=== PATIENT | female | born 1980 | race Caucasian/White ===

== ENCOUNTER 2019-01-24 08:22 | Emergency (ER) | payer OTHER ==
[2019-01-24 08:38] VITALS: BP 133/86
[2019-01-24] MEDS ORDERED: HYDROcod/ACETAM 5/325 MG TABLET PO STA (08:45)
[2019-01-24] MEDS ORDERED: CYCLOBENZAPRINE 10 MG TABLET PO STA (08:45)
--- NOTE | 2019-01-24 08:49 | ED Physician Documentation ---
History of Present Illness - Stated complaint Stated Complaint: LT SIDE NECK AND SHOULDER PX - Chief complaint Chief Complaint: Trauma Hd/Nk - History obtained from History obtained from: Patient - Additonal information Additional information: Patient is a 38-year-old previously healthy, right-handed female presenting with left neck pain that began several days ago after attending [facility]. Patient denies any particular inciting incident, trauma, or fall. She describes significant muscle spasm to the left neck towards her left scapula and left shoulder. Patient denies any change in strength or range of motion to left arm, but does report numbness and tingling occasionally to this arm. No overlying skin changes or other complaints. Patient has been taking naproxen and ibuprofen without much relief, as well as using massage, ice, heat, and stretching. No other improving or worsening factors noted. Review of Systems Skin: denies: Rash, Lesions, Abrasion (s) Musculoskeletal: reports: Neck pain PD PAST MEDICAL HISTORY - Past Medical History Past Medical History: Yes Psych: Anxiety - Past Surgical History Past Surgical History: Yes /[employer]: section - Present Medications Home Medications: Ambulatory Orders Medication Instructions Recorded Confirmed Cyclobenzaprine [Flexeril] 10 mg PO TID PRN #20 tablet 01/24/19 DULoxetine [Cymbalta] 30 mg DAILY 01/24/19 01/24/19 Hydrocodone/Acetaminophen 1 - 2 each PO Q6H PRN #14 tablet 01/24/19 [Hydrocodon-Acetaminophen 5-325] - Social History Does the pt smoke?: No Smoking Status: Never smoker Does the pt drink ETOH?: No Does the pt have substance abuse?: No PD ED PE NORMAL - Vitals Vital signs reviewed: Yes - General General: Alert and oriented X 3, No acute distress, Well developed/nourished - HEENT HEENT: Atraumatic, Moist mucous membranes - Neck Neck: No bony TTP, Other (Moderate muscle spasm and tenderness to left cervical paraspinal muscles as compared to right. Decreased range of motion of neck, particularly in the left rotation.) - Respiratory Respiratory: No respiratory distress - Back Back: No spinal TTP - Derm Derm: Normal color, Warm and dry, No rash - Extremities Extremities: No deformity, No tenderness to palpate - Neuro Neuro: Alert and oriented X 3, No motor deficit, No sensory deficit - Psych Psych: Normal mood, Normal affect Results - Vitals Vitals: Vital Signs - 24 hr 01/24/19 08:30 Temperature 36.9 C Heart Rate 91 Respiratory 17 Rate Blood Pressure 133/86 H O2 Saturation 99 Oxygen O2 Source Room air PD MEDICAL DECISION MAKING - ED course Complexity details: considered differential, d/w patient, d/w family ED course: Patient presenting with uncomplicated muscle spasm to the left neck. Patient does not exhibit complete torticollis, but does have decreased range of motion because of discomfort. No overlying skin changes to indicate rash such as singles, cellulitis, abscess, or other concerns. No midline tenderness and do not have high suspicion for vertebral spinal cord injury, particularly given lack of trauma. No other neurological deficits or complications noted on exam. Feel that she is safe to discharge home with oral medications. First dose is given in the ED. Discussed other supportive cares, return precautions, appropriate follow-up. Patient voiced understanding and is comfortable with discharge plan. Departure - Departure Disposition: 01 Home, Self Care Clinical Impression: Muscle spasm Condition: Good Instructions: ED Spasm Muscle Follow-Up: your,doctor [Other] - Within 3 Days Prescriptions: Cyclobenzaprine [Flexeril] 10 mg PO TID PRN #20 tablet PRN Reason: Spasms Hydrocodone/Acetaminophen [Hydrocodon-Acetaminophen 5-325] 1 - 2 each PO Q6H PRN #14 tablet PRN Reason: pain Comments: Recommend stretching, heat application, massage. Avoid Cross[employer] or other strenuous exercise until fully healed. May use [place] and Flexeril as prescribed for pain and muscle spasm relief, respectively. If taking [place], do not combine with alcohol, Tylenol, or driving. If taking [place] consistently, recommend stool softener or laxative to avoid constipation. If not taking [place], may use ibuprofen/Tylenol as needed, but please be aware of dosing.Follow-up with primary care physician in the next 2 to 3 days return to ED sooner if experience worsening symptoms or have other concerns.
== END 2019-01-24 09:03 | disposition home or self-care (01) ==
LOC: ED 08:22
DX: M62.838 Other muscle spasm (principal); M54.2 Cervicalgia; Y93.B9 Activity, other involving muscle strengthening exercises
CPT/HCPCS: 99283; A9270

== ENCOUNTER 2019-05-09 12:38 | Emergency (ER) | payer OTHER ==
[2019-05-09 12:48] VITALS: BP 135/99
--- NOTE | 2019-05-09 13:58 | ED Physician Documentation ---
History of Present Illness - Stated complaint Stated Complaint: RT SIDE PX - Chief complaint Chief Complaint: Resp - Additonal information Additional information: This is a 38-year-old female who presents with some right sided pain. Patient states that she gets severe coughing fits with upper respiratory infections, and she began having cold symptoms earlier this week, and she has had several coughing fits. Today when she was having a strong coughing fit she suddenly developed pain over her right lower ribs. She states that she now has severe soreness over the right lower ribs which is worse when she presses in on the area when she twists. She denies shortness of breath. No hemoptysis, no history of blood clots. No leg swelling or redness. Review of Systems Constitutional: denies: Fever Cardiac: reports: Chest pain / pressure Respiratory: reports: Cough. denies: Dyspnea PD PAST MEDICAL HISTORY - Past Medical History Psych: Anxiety - Past Surgical History Past Surgical History: Yes /RHIT: section - Present Medications Home Medications: Ambulatory Orders Medication Instructions Recorded Confirmed Cyclobenzaprine [Flexeril] 10 mg PO TID PRN #20 tablet 01/24/19 DULoxetine [Cymbalta] 30 mg DAILY 01/24/19 01/24/19 Hydrocodone/Acetaminophen 1 - 2 each PO Q6H PRN #14 tablet 01/24/19 [Hydrocodon-Acetaminophen 5-325] Acetaminophen 650 mg PO Q6HR #30 tablet 05/09/19 Ibuprofen 600 mg PO Q6H PRN #30 tablet 05/09/19 Lidocaine Patch 5% [Lidoderm Patch] 1 patch TOP DAILY PRN #10 patch 05/09/19 Methocarbamol [Robaxin-750] 750 mg PO TID PRN #21 tablet 05/09/19 - Allergies Allergies/Adverse Reactions: Allergies Allergy/AdvReac Type Severity Reaction Status Date / Time No Known Drug Allergies Allergy Verified 05/09/19 12:46 - Social History Does the pt smoke?: No Smoking Status: Never smoker Does the pt drink ETOH?: No Does the pt have substance abuse?: No PD ED PE NORMAL - Vitals Vital signs reviewed: Yes - General General: Alert and oriented X 3, No acute distress - HEENT HEENT: PERRL - Neck Neck: Supple, no meningeal sign - Cardiac Cardiac: Other (Regular rate and rhythm on my exam) - Respiratory Respiratory: No respiratory distress, Clear bilaterally, Other (Reproducible tenderness over the right lower anterior ribs.) - Abdomen Abdomen: Soft, Non tender, Non distended - Derm Derm: Warm and dry - Extremities Extremities: No deformity - Neuro Neuro: Alert and oriented X 3 - Psych Psych: Normal mood, Normal affect Results - Vitals Vitals: Vital Signs - 24 hr 05/09/19 12:46 Temperature 36.6 C Heart Rate 102 H Respiratory 15 Rate Blood Pressure 135/99 H O2 Saturation 98 Oxygen O2 Source Room air - Rads (name of study) CXR Radiology: Other (Normal without signs of consolidation or fracture) PD MEDICAL DECISION MAKING - ED course Complexity details: considered differential (Rib fracture, strain, costochondritis, pneumothorax) ED course: Pt has focal and reproducible pain over the right lower anteriorlateral ribs that began after a fit of forceful coughing. Her CXR is negative. The location of the pain and her history makes ACS extremely unlikely. The history and reproducibility makes PE extremely unlikely. She appears to have a non-displ aced/occult rib fracture vs strain or other musculoskeletal cause of her pain. We will treat with tylenol, ibuprofen, robaxin, lidocaine patch. I discussed return precautions and PCP follow up and patient was discharged home. Departure - Departure Disposition: 01 Home, Self Care Clinical Impression: Rib pain on right side Condition: Good Follow-Up: Your,PCP [Other] - Within 3 Days Prescriptions: Acetaminophen 650 mg PO Q6HR #30 tablet Ibuprofen 600 mg PO Q6H PRN #30 tablet PRN Reason: Pain Lidocaine Patch 5% [Lidoderm Patch] 1 patch TOP DAILY PRN #10 patch PRN Reason: pain Methocarbamol [Robaxin-750] 750 mg PO TID PRN #21 tablet PRN Reason: Pain Comments: Your were seen today for pain which began after coughing. Your chest x-ray does not show signs of collapsed lung or an obvious rib fracture that is out of place, But you still may have a small rib fracture, bruising, or strain of your chest wall. You may use Tylenol, ibuprofen, and lidocaine patches over the area. If this is not effective in controlling your pain, may use the Robaxin, which is a muscle relaxant. Do not combine this with alcohol or other sedating medications. If you develop shortness of breath, coughing up blood, or any other concerning symptoms return to the emergency department. Discharge Date/Time: 05/09/19 14:30
--- NOTE | 2019-05-09 14:01 | XRAY Report ---
Reason: cough, right rib pain Procedure Date: 05/09/2019 Accession Number: [id number] / [id number] Procedure: XR - Chest 2 View X-Ray CPT Code: 28146 FULL RESULT: EXAM: CHEST RADIOGRAPHY EXAM DATE: 05/09/2019 01:42 PM. CLINICAL HISTORY: Cough, right rib pain. COMPARISON: None. TECHNIQUE: 2 views. FINDINGS: Lungs/Pleura: No focal opacities evident. No pleural effusion. No pneumothorax. Normal volumes. Mediastinum: Heart and mediastinal contours are unremarkable. Other: None. IMPRESSION: Normal 2-view chest radiography. [facility]
[2019-05-09] MEDS ORDERED: ACETAMINOPHEN 325 MG TABLET PO STA (14:08)
[2019-05-09] MEDS ORDERED: IBUPROFEN 600 MG TABLET PO STA (14:08)
[2019-05-09] MEDS ORDERED: METHOCARBAMOL 500 MG TABLET PO STA (14:09)
== END 2019-05-09 14:30 | disposition home or self-care (01) ==
LOC: ED 12:38
DX: R07.81 Pleurodynia (principal); R05 Cough
CPT/HCPCS: 71046; 99284; A9270